=== PATIENT | male | born 1980 | race African-American/Black ===

== ENCOUNTER 2018-04-05 07:36 | Emergency (ER) | payer OTHER ==
[2018-04-05] MEDS ORDERED: FLUORESCEIN NA 1 EA STRIP OU ONE (07:38)
--- NOTE | 2018-04-05 07:38 | PDOC ---
History of Present Illness - General Chief Complaint: Eye Problem Stated Complaint: FOREIGN BODY IN RIGHT EYE Time Seen by Provider: 04/05/18 07:37 - History of Present Illness Initial Comments: 04/05/18 09:26 Chief complaint: Redness and irritation right eye History of present illness: Patient states that he was doing some shelving at home last night around 9 PM, but does not recall a foreign body or other unusual sensation at that time. Woke up at 2 AM with irritation and redness of the right eye. No deep pain or photophobia. He admits having a mild URI, has 2 young children, but they are not ill. Review of systems: Denies fever/chills, cough, chest pain, shortness of breath, abdominal pain, nausea, vomiting, diarrhea, visual or focal neurologic symptoms , unsteadiness of gait. Remainder systems reviewed and found to be negative Past medical history: Patient is a healthy male without significant medical or surgical problems, on no medications Social history: Owns an aquarium/pet shop, no tobacco alcohol or nonprescription drugs. Stable home and family. Family history: Reviewed and noncontributory Physical exam: Alert and oriented well-developed well-nourished no acute distress cooperative. No photophobia Right eye: Pupil 4 mm, round, reactive to light and accommodation. EOMs full without diplopia. Visual wiggins intact. Conjunctival injection, mild, without limbal flush. Fundus is benign. Anterior chamber is clear. Cornea clear, no foreign body visualized, with staining. There is increased pigmentation at the lower border of cornea with a 1-2 mm pigmentation at approximately 7:00. Impression: Probable viral conjunctivitis. No corneal abrasion or foreign body. Pigmented lesion. Plan: Warm compresses and antibiotic drops. Ophthalmology follow-up for recheck and examination of possible pigmented lesion. Fully ambulatory and in no distress upon discharge to follow-up as directed Past History - Past Medical History Allergies/Adverse Reactions: Allergies Allergy/AdvReac Type Severity Reaction Status Date / Time No Known Allergies Allergy Verified 04/05/18 07:37 Home Medications: Ambulatory Orders NK [No Known Home Medication] 04/05/18 Medical Decision Making - Medical Decision Making 04/05/18 08:56 No foreign body or abrasion were visualized after fluorescein staining. With the patient's URI symptoms, this is likely a viral conjunctivitis. Warm compresses and antibiotic drops prescribed. However, he was advised to see an phosphoric acid supervisor for further evaluation because of the discoloration visualized at the border of the cornea at approximately 7:00 that maybe of pigmented lesion. He understands and agrees to follow-up as directed. Fully ambulatory and in no significant pain or other distress upon discharge. *DC/Admit/Observation/Transfer Diagnosis at time of Disposition: Viral conjunctivitis of right eye - Discharge Dispostion Disposition: HOME Condition at time of disposition: Improved Decision to Admit order: No - Referrals - Patient Instructions Printed Discharge Instructions: How to Instill Eye Drops, DI for Red Eye Additional Instructions: Warm compresses 3 or 4 times daily. Eyedrops as directed. See phosphoric acid supervisor ( eye doctor) within 1 week for recheck. There is a discoloration in your eye that should be examined by specialist. - Post Discharge Activity
[2018-04-05] MEDS ORDERED: TETRACAINE 0.5% HCL 0.6ML DROPPER.BOTTLE OS ONE (07:39)
[2018-04-05 07:54] VITALS: BP 127/92; PULSE 64; TEMP 98.4; BMI 22.8
[2018-04-05] MEDS ORDERED: GENTAMICIN SULFATE 0.3% OPHTHALMIC (EYE DROPS) 5ML BOTTLE OD ONE (08:53)
[2018-04-05] MEDS ORDERED: GENTAMICIN SULFATE 0.3% OPHTHALMIC (EYE DROPS) 5ML BOTTLE ONE (08:55)
== END 2018-04-05 09:03 | disposition home or self-care (01) ==
LOC: FER 07:36
DX: B30.9 Viral conjunctivitis, unspecified (principal)
CPT/HCPCS: 99281-25